=== PATIENT | female | born 1930 | race Caucasian/White ===

== ENCOUNTER → 2016-10-27 | Outpatient (CLI) | payer OTHER, MEDICARE | LOC: HYPER 07:57 | DX: S81.801D Unspecified open wound, right lower leg, subsequent encounter (principal); K21.9 Gastro-esophageal reflux disease without esophagitis; E03.9 Hypothyroidism, unspecified; M81.0 Age-related osteoporosis without current pathological fracture; E78.5 Hyperlipidemia, unspecified; Z85.828 Personal history of other malignant neoplasm of skin; Z87.891 Personal history of nicotine dependence; Z72.89 Other problems related to lifestyle; W22.8XXD Striking against or struck by other objects, subsequent encounter ==

== ENCOUNTER → 2016-11-10 | Outpatient (CLI) | payer OTHER, MEDICARE | LOC: HYPER 08:12 | DX: S81.801D Unspecified open wound, right lower leg, subsequent encounter (principal); K21.9 Gastro-esophageal reflux disease without esophagitis; E03.9 Hypothyroidism, unspecified; E78.5 Hyperlipidemia, unspecified; M81.0 Age-related osteoporosis without current pathological fracture; Z85.828 Personal history of other malignant neoplasm of skin; Z87.891 Personal history of nicotine dependence; Z72.89 Other problems related to lifestyle; W22.03XD Walked into furniture, subsequent encounter ==

== ENCOUNTER → 2016-12-04 | Outpatient (CLI) | payer OTHER, MEDICARE | LOC: HYPER 07:06 | DX: S81.811D Laceration without foreign body, right lower leg, subsequent encounter (principal); M19.90 Unspecified osteoarthritis, unspecified site; K21.9 Gastro-esophageal reflux disease without esophagitis; E03.9 Hypothyroidism, unspecified; E78.5 Hyperlipidemia, unspecified; M81.0 Age-related osteoporosis without current pathological fracture; L08.9 Local infection of the skin and subcutaneous tissue, unspecified; Z85.828 Personal history of other malignant neoplasm of skin; X58.XXXD Exposure to other specified factors, subsequent encounter; Y92.9 Unspecified place or not applicable; Y99.9 Unspecified external cause status; Z87.891 Personal history of nicotine dependence; Z72.89 Other problems related to lifestyle ==

== ENCOUNTER → 2017-01-26 | Outpatient (CLI) | payer OTHER, MEDICARE | LOC: HYPER 08:08 | DX: S81.802A Unspecified open wound, left lower leg, initial encounter (principal); S61.502A Unspecified open wound of left wrist, initial encounter; S51.802A Unspecified open wound of left forearm, initial encounter; S51.002A Unspecified open wound of left elbow, initial encounter; S41.112A Laceration without foreign body of left upper arm, initial encounter; M19.90 Unspecified osteoarthritis, unspecified site; K21.9 Gastro-esophageal reflux disease without esophagitis; E03.9 Hypothyroidism, unspecified; E78.5 Hyperlipidemia, unspecified; H26.9 Unspecified cataract; M81.0 Age-related osteoporosis without current pathological fracture; Z85.828 Personal history of other malignant neoplasm of skin; Z87.891 Personal history of nicotine dependence; Z72.89 Other problems related to lifestyle; W22.8XXA Striking against or struck by other objects, initial encounter; Y93.89 Activity, other specified; Y92.89 Other specified places as the place of occurrence of the external cause; Y99.8 Other external cause status ==

== ENCOUNTER → 2017-02-06 | Outpatient (CLI) | payer OTHER, MEDICARE | LOC: HYPER 07:07 | DX: S81.811D Laceration without foreign body, right lower leg, subsequent encounter (principal); S81.812D Laceration without foreign body, left lower leg, subsequent encounter; L08.9 Local infection of the skin and subcutaneous tissue, unspecified; M19.90 Unspecified osteoarthritis, unspecified site; K21.9 Gastro-esophageal reflux disease without esophagitis; E03.9 Hypothyroidism, unspecified; M81.0 Age-related osteoporosis without current pathological fracture; E78.5 Hyperlipidemia, unspecified; H26.9 Unspecified cataract; Z87.891 Personal history of nicotine dependence; Z85.828 Personal history of other malignant neoplasm of skin; Z72.89 Other problems related to lifestyle; X58.XXXD Exposure to other specified factors, subsequent encounter ==

== ENCOUNTER → 2017-02-15 | Outpatient (CLI) | payer OTHER, MEDICARE | LOC: HYPER 06:56 | DX: S81.801D Unspecified open wound, right lower leg, subsequent encounter (principal); S81.802D Unspecified open wound, left lower leg, subsequent encounter; M19.90 Unspecified osteoarthritis, unspecified site; K21.9 Gastro-esophageal reflux disease without esophagitis; E03.9 Hypothyroidism, unspecified; M81.0 Age-related osteoporosis without current pathological fracture; E78.5 Hyperlipidemia, unspecified; H26.9 Unspecified cataract; Z87.891 Personal history of nicotine dependence; Z72.89 Other problems related to lifestyle; Z85.828 Personal history of other malignant neoplasm of skin; X58.XXXD Exposure to other specified factors, subsequent encounter ==

== ENCOUNTER → 2017-02-28 | Outpatient (CLI) | payer OTHER, MEDICARE | LOC: HYPER 07:05 | DX: S81.801D Unspecified open wound, right lower leg, subsequent encounter (principal); S81.812D Laceration without foreign body, left lower leg, subsequent encounter; L08.9 Local infection of the skin and subcutaneous tissue, unspecified; K21.9 Gastro-esophageal reflux disease without esophagitis; E03.9 Hypothyroidism, unspecified; M81.0 Age-related osteoporosis without current pathological fracture; E78.5 Hyperlipidemia, unspecified; Z85.828 Personal history of other malignant neoplasm of skin; Z87.891 Personal history of nicotine dependence; Z72.89 Other problems related to lifestyle; W19.XXXD Unspecified fall, subsequent encounter ==

== ENCOUNTER → 2017-03-20 | Outpatient (CLI) | payer OTHER, MEDICARE | LOC: HYPER 06:57 | DX: S81.811D Laceration without foreign body, right lower leg, subsequent encounter (principal); L08.9 Local infection of the skin and subcutaneous tissue, unspecified; M19.90 Unspecified osteoarthritis, unspecified site; K21.9 Gastro-esophageal reflux disease without esophagitis; E03.9 Hypothyroidism, unspecified; M81.0 Age-related osteoporosis without current pathological fracture; Z85.828 Personal history of other malignant neoplasm of skin; E78.5 Hyperlipidemia, unspecified; Z87.891 Personal history of nicotine dependence; Z72.89 Other problems related to lifestyle; X58.XXXD Exposure to other specified factors, subsequent encounter; Y92.89 Other specified places as the place of occurrence of the external cause; Y99.8 Other external cause status ==